=== PATIENT | female | born 1990 | race Caucasian/White ===

== ENCOUNTER 2019-12-09 17:48 | Emergency (ER) | payer OTHER ==
[~2019-12-09] VITALS: Ht 154.9 cm; Wt 65.8 kg
--- OUTSIDE RECORDS SUMMARY | ~2019-12-09 | XMS | Encounter Summary ---
Demographics + + + | Address | [address] | | | [place] [address] | + + + | Home Phone | | + + + | Preferred Language | Unknown | + + + | Marital Status | | + + + | Jewish Affiliation | Unknown | + + + | Race | White | + + + | Ethnic Group | Not or | + + + Author + + + | Author | [facility] | + + + | Organization | [facility] | + + + | Address | Unknown | + + + | Phone | Unavailable | + + + Support + + + + + | Name | Relationship | Address | Phone | + + + + + | Xiang Diggs | ECON | [address] | | | | | # [place] | | | | | [address] | | + + + + + Care Team Providers + +------+ + | Care Ceo Na Name | Role | Phone | + +------+ + | Ida Herrera | PCP | | + +------+ + Reason for Visit + + + | Reason | Comments | + + + | Examination Of Skin | Francis is here today for possible psoriasis.....Maureen MONTEJO | + + + Consultation (Routine) +--------+--------+ + + + + | Status | Reason | Specialty | Diagnoses / | Referred By | Referred To | | | | | Procedures | Contact | Contact | +--------+--------+ + + + + | Closed | | Dermatology | Diagnoses | Javier, | [place], | | | | | Psoriasis, | Ida Guillen, | Leticia Bowen, | | | | | unspecified | [place] [address] | ,PhD 1934 | | | | | | [address] | [address] | | | | | | [place], | [place], | | | | | | [place] [address] | [place] [address] | | | | | | Phone: | Phone: | | | | | | [phone] | [phone] | | | | | | Fax: | Fax: | | | | | | [phone] | [phone] | +--------+--------+ + + + + Encounter Details +--------+---------+ + + + | Date | Type | Department | Care Team | Description | +--------+---------+ + + + | 11/05/ | Office | Dermatology at | Leticia Cat, | Nevus spilus | | 2015 | Visit | Christine Espinoza | ,PhD 1934 | (Primary Dx); Atopic | | | | Clinic [address] | [address] [place], [place] | dermatitis, | | | | [place], [place] | [address] | unspecified type | | | | [address] | [phone] | | | | | [phone] | | | +--------+---------+ + + + Social History + +-------+ +--------+------+ | Tobacco Use | Types | Packs/Day | Years | Date | | | | | Used | | + +-------+ +--------+------+ | Never Assessed | | | | | + +-------+ +--------+------+ + + + | Sex Assigned at | Date Recorded | | | | + + + | Not on file | | + + + + + + + | Job Start Date | Occupation | Industry | + + + + | Not on file | Not on file | Not on file | + + + + + + + + | Travel History | Travel Start | Travel End | + + + + + + | No recent travel history available. | + + documented as of this encounter Last Filed Vital Signs + + + + + | Vital Sign | Reading | Time Taken | Comments | + + + + + | Blood Pressure | - | - | | + + + + + | Pulse | 69 | 11/06/2015 1:07 PM | | | | | PDT | | + + + + + | Temperature | - | - | | + + + + + | Respiratory Rate | - | - | | + + + + + | Oxygen Saturation | 99% | 11/06/2015 1:07 PM | | | | | PDT | | + + + + + | Inhaled Oxygen | - | - | | | Concentration | | | | + + + + + | Weight | 65.2 kg (143 lb 12.8 | 11/06/2015 1:07 PM | | | | oz) | PDT | | + + + + + | Height | 154.9 cm (5' 1") | 11/06/2015 1:07 PM | | | | | PDT | | + + + + + | Body Mass Index | 27.17 | 11/06/2015 1:07 PM | | | | | PDT | | + + + + + documented in this encounter Patient Instructions Patient Instructions Zeinab ZohrehGATO - 11/06/2015 1:14 PM PDT [facility] Dermatology [facility] Skin Care for Atopic Dermatitis and Very Dry Skin 1. Use soap sparingly and infrequently, and do not take hot showers or baths Soap removes oils as well as dirt. If you want to clean a greasy cooking pot, you use hot w ater and lots of soap. But if you use hot water and soap on your skin, it will strip natural oils out of the skin. These oils are designed to protect your skin, and keep it from drying out. Our skin is NOT designed to be soaped up every day. Skin is normally pretty resilient and tough, and many people can tolerate daily treatment with soap all over their skin -- but not people with atopic dermatitis or sensitive skin. So: ? When you take a shower, only soap your armpits and groin; do not use cleanser on the rest of your skin unless it is visibly dirty. ? Do not take long, hot showers: even without cleanser this will irritate the skin. If your skin is already itching, the hot water will feel VERY good -- but will make the skin feel w orse, later. ? If you take baths, do not make them very hot. AND, do not use any soap or shampoo at all until you are about ready to get out! Again, use cleanser only in the armpits & groin, or vi sibly dirty areas, and rinse off immediately. ? If you must use an antibacterial soap, I recommend Hibiclens Wash 1-2 times a week. If bl each baths have been recommended by your doctor add 1/4 cup bleach to a full bath and soak o nce weekly. Mild Cleansers ? Dove Unscented bar ? Olay Body bar ? Cetaphil bar ? Cetaphil cleanser (does not foam but works well!) ? Neutrogena cleansing wash ? Purpose liquid cleanser 2. Use moisturizing CREAMS or OINTMENTS -- not lotions Moisturizers do NOT really add moisture to the skin, but they help add a protective coating that reduces water loss, allowing the skin to moisturize itself from the inside. Apply your moisturizer IMMEDIATELY after your shower or bath to SEAL in the moisture you gained. "Soak , and Seal!" For people with very dry skin, LOTIONS ARE MOSTLY USELESS, and many of them will irritate t he skin. Creams (oil in water emulsions; too thick to make "drops") are generally good moist urizers, and ointments are the best of all, but ointments are greasy and not very elegant -- most people don't enjoy using them. 3. Apply cream or ointment twice a day, and after every shower/bath. Moisturizers can be ap plied as often as desired; use them liberally at least twice a day. The most important time to apply a moisturizer is right after bathing or showering, before the skin is completely dr y. Most moisturizing creams will do the job: it is safest, however, to choose creams that do n ot have added fragrance. Recommended creams ? Cetaphil Cream (my favorite: very effective and very well tolerated) ? CeraVe Cream ? Curel Dry Skin Care ? Eucerin Cream (pretty thick, and hard to apply, but very effective; no odor) ? Neutrogena Hand Cream ? Vanicream (especially good for sensitive skin) Ointments ? Vaseline (100% petroleum jelly) ? Aquaphor ointment 4. Avoid contact with irritants and solvents ? Wool clothing, or any rough fabric ? Alcohol will strip oils from the skin: Avoid toners ? Kitchen cleansers and solvents ? Bleach ? Avoid hydrogen peroxide documented in this encounter Progress Notes Leticia Cat MD,PhD - 11/06/2015 12:59 PM PDTFormatting of this note might be differen t from the original. DERMATOLOGY NEW PATIENT VISIT CHIEF COMPLAINT: Examination Of Skin PCP: JEANNINE Borden HISTORY OF PRESENT ILLNESS: Swapna Diggs is a 25 y.o. female who presents for evaluation of Examination Of Skin She is here for evaluation of dermatitis. She has had dry irritated skin and eczema on her hands, wrists and ankles for most of her life. It waxes and wanes in severity. She is not currently using any prescription products. She uses Dove sensitive skin bar soap, and a justin sturizer in the shower. She is here with her 6-month-old daughter who has an infantile nico ngioma on her back. The patient's dermatology intake form was reviewed, signed, and dated. Her relevant PMH, F H, and SH includes: PAST MEDICAL HISTORY: No past medical history on file. PAST SURGICAL HISTORY: No past surgical history on file. SOCIAL HISTORY: Patient MEDICATIONS: Current Medication List Not on File ALLERGIES: Allergies not on file REVIEW OF SYSTEMS: Please see HPI and PMH. In addition, she denies fever, chills, sweats, weight loss or loss of appetite, and has no further skin complaints. PHYSICAL EXAMINATION: Pulse 69 | Ht 1.549 m (5' 1") | Wt 65.227 kg (143 lb 12.8 oz) | SpO2 99% | BMI 27.18 kg/(m^ 2) Well-developed, well-nourished person in no acute distress. Awake, alert and oriented. Pl easant and cooperative mood. A skin examination was performed including the scalp, face, eyelids, ears, lips, neck, ches t, back, abdomen, bilateral arms, bilateral hands, and nails. 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 Routine use of sunscreen and skin-protective clothing was also discussed. Month ly self-examination was recommended in addition to annual skin exams Atopic dermatitis Comment: Bilateral wrist and hands Plan: -- Dry skin care handout provided today -- Triamcinolone cream (Twice daily for two weeks for flares, then regular Moisturizer for maintenance) RETURN VISIT: Return if symptoms worsen or fail to improve. Leticia Cat MD, PhD [employer] Department of Dermatology [facility] 11/06/2015 documented in th is encounter Plan of Treatment Not on filedocumented as of this encounter Visit Diagnoses + + | Diagnosis | + + | Nevus spilus - Primary Benign neoplasm of skin, site unspecified | + + | Atopic dermatitis, unspecified type | + + documented in this encounter
--- OUTSIDE RECORDS SUMMARY | ~2019-12-09 | XMS | Encounter Summary ---
Demographics + + + | Address | [address] | | | [place] [address] | + + + | Home Phone | | + + + | Preferred Language | Unknown | + + + | Marital Status | | + + + | Presybeterian Affiliation | Unknown | + + + | Race | White | + + + | Ethnic Group | Not or | + + + Author + + + | Author | [facility] | + + + | Organization | [facility] | + + + | Address [...] [place] | | | | | [address] | | + + + + + Care Team Providers + +------+ + | Care Texture Artist Name | Role | Phone | + +------+ + | Ida Herrera | PCP | | + +------+ + Encounter Details +--------+ + + + + | Date | Type | Department | Care Team | Description | +--------+ + + + + | 11/11/ | Telephone | Dermatology at | Leticia Cat, | | | 2015 | | Christine Espinoza | ,PhD 1934 | | | | | Clinic [address] | [place] | | | | | [place], [place] | [address] | | | | | [address] | [phone] | | | | | [phone] | | | +--------+ + + + + Social History + +-------+ [...] + + documented as of this encounter Plan of Treatment Not on filedocumented as of this encounter Visit Diagnoses Not on filedocumented in this encounter"
--- OUTSIDE RECORDS SUMMARY | ~2019-12-09 | XMS | Clinical Summary ---
Demographics + + + | Address | [address] | | | [place] [address] | + + + | Home Phone | | + + + | Preferred Language | Unknown | + + + | Marital Status | | + + + | Anglican Affiliation | Unknown | + + + | Race | White | + + + | Ethnic Group | Not or | + + + Author + + + | Author | [facility] | + + + | Organization | [facility] | + + + | Address | Unknown | + + + | Phone | Unavailable | + + + Support + + + + + | Name | Relationship | Address | Phone | + + + + + | Xiang Diggs | ECON | [address] | | | | | # [place] | | | | | [address] | | + + + + + Care Team Providers + +------+ + | Care Relief Pharmacist Name | Role | Phone | + +------+ + | Ida Herrera | PCP | | + +------+ + Source Comments ORQUIDEA is fully live on both [facility] and [facility]Patient.[facility] Allergies No Known Allergies Medications + + + +---------+------+------+-------+ | Medication | Sig | Dispensed | Refills | Star | End | Statu | | | | | | t | Date | s | | | | | | Date | | | + + + +---------+------+------+-------+ | SUDOGEST 12-HOUR | Take 120 mg by mouth | | 0 | 05/1 | | Activ | | 120 mg oral tablet | once daily. | | | 3/20 | | e | | extended release | | | | 16 | | | + + + +---------+------+------+-------+ | SHAROBEL 0.35 mg | | | 0 | 05/2 | | Activ | | oral tablet | | | | 0/20 | | e | | | | | | 16 | | | + + + +---------+------+------+-------+ | triamcinolone | Apply thin film to | 80 g | 3 | 06/2 | | Activ | | acetonide 0.1 % | affected areas twice | | | 3/20 | | e | | topical | daily for two weeks | | | 16 | | | | creamIndications: | for flares | | | | | | | Atopic dermatitis, | | | | | | | | unspecified type | | | | | | | + + + +---------+------+------+-------+ Active Problems Not on file Social History + +-------+ +--------+------+ | Tobacco [...] recent travel history available. | + + Last Filed Vital Signs + + + [...] | | + + + + + Plan of Treatment + + + + + | Health Maintenance | Due Date | Last Done | Comments | + + + + + | Influenza (Flu) | | | | | vaccination (#1) | 9 | | | + + + + + | Pneumococcal | Aged Out | | No longer eligible | | vaccination | | | based on patient's | | | | | age to complete this | | | | | topic | + + + + + Results Not on filefrom Last 3 Months Insurance + +--------+ +--------+-------+---------+--------+ | Payer | Benefi | Subscriber | Effect | Phone | Address | Type | | | t Plan | ID | abundio | | | | | | / | | Dates | | | | | | Group | | | | | | + +--------+ +--------+-------+---------+--------+ | TUMBLER TENDER MEDICAID | TUMBLER TENDER | xxxxxxxx | Effect | | | Medica | | | [place]AST[place] | | abundio | | | id | | | [place] | | for | | | | | | | | all | | | | | | | | dates | | | | + +--------+ +--------+-------+---------+--------+ + +--------+ +--------+ + + | Guarantor Name | Accoun | Relation to | Date | Phone | Billing Address | | | t Type | Patient | of | | | | | | | | | | + +--------+ +--------+ + + | Swapna Diggs | Person | Self [birth year] | [address] | | | al/Fam | | 1990 | [phone] | [address] [place] | | | frank | | | 5 ([place]) | [phone] | | | | | | [phone] | | | | | | | 8 (Work) | | + +--------+ +--------+ + +
--- OUTSIDE RECORDS SUMMARY | ~2019-12-09 | XMS | Encounter Summary ---
Demographics + + + | Address | [address] | | | [place] [address] | + + + | Home Phone | | + + + | Preferred Language | Unknown | + + + | Marital Status | | + + + | Religion Affiliation | Unknown | + + + | Race | White | + + + | Ethnic Group | Not or | + + + Author + + + | Author | [facility] | + + + | Organization | [facility] | + + + | [...] [place] | | | | | [address] | | + + + + + Care Team Providers + +------+ + | Care Bid Writer Name | Role | Phone | + +------+ + | Ida Herrera | PCP | | + +------+ + Encounter Details +--------+ + + + + | Date | Type | Department | Care Team | Description | +--------+ + + + + | 07/03/ | Document-Sc | Dermatology at | Leticia Cat, | | | 2016 | anntrace | [facility] | ,PhD 1934 | | | | | Clinic [address] | [address] [place], [place] | | | | | [place], [place] | [address] | | | | | [address] | [phone] | | | | | [phone] | | | +--------+ + + + [...]
--- OUTSIDE RECORDS SUMMARY | ~2019-12-09 | XMS | Clinical Summary ---
Demographics + + + | Address | [address] | | | [place] [address] | + + + | Home Phone | | + + + | Preferred Language | Unknown | + + + | Marital Status | | + + + | Zoroastrianism Affiliation | Unknown | + + + | Race | White | + + + | Ethnic Group | Not or | + + + Author + + + | Author | [facility] | + + + | Organization | [facility] | + + + | Address [...] [place] | | | | | [address] | | + + + + + Care Team Providers + +------+ + | Care Radio Rigger Name | Role | Phone | + +------+ + | Ida Herrera | PCP | | + +------+ + Source Comments ORQUIDEA is fully live on both [facility] Amb[facility] and [facility] InPatient.[facility] Allergies No Known Allergies Medications + + [...] | | | + +--------+ +--------+-------+---------+--------+ | LAUNDRY MACHINE MECHANIC MEDICAID | LAUNDRY MACHINE MECHANIC | xxxxxxxx | Effect | | | [...] | | al/Fam | | 1990 | [phone] | [address] [place] | | | frank | | | 5 ([place]) | [id number] | | | | | | [phone] | | | | | | | 8 (Work) | | + +--------+ +--------+ + +
--- OUTSIDE RECORDS SUMMARY | ~2019-12-09 | XMS | Encounter Summary ---
Demographics + + + | Address | [address] | | | [place] [address] | + + + | Home Phone | | + + + | Preferred Language | Unknown | + + + | Marital Status | | + + + | Advent Affiliation | Unknown | + + + | Race | White | + + + | Ethnic Group | Not or | + + + Author + + + | Author | [facility] | + + + | Organization | [facility] | + + + | Address [...] [place] | | | | | [address] | | + + + + + Care Team Providers + +------+ + | Care Low Altitude Air Defense Gunner Name | Role | Phone | + [...] [place] | | | | | [place], [place] | [address] | | | | | [address] | [phone] | | | | | [phone] | | | +--------+ + + + [...]
--- OUTSIDE RECORDS SUMMARY | ~2019-12-09 | XMS | Encounter Summary ---
Demographics + + + | Address | [address] | | | [place] [address] | + + + | Home Phone | | + + + | Preferred Language | Unknown | + + + | Marital Status | | + + + | Orthodox Affiliation | Unknown | + + + [...] [place] | | | | | [address] | | + + + + + Care Team Providers + +------+ + | Care Propulsion Generator Repairer Name | Role | Phone | + [...] [place] | | | | | [place], [place] | [address] | | | | | [address] | [phone] | | | | | [phone] | | | +--------+ + + + [...]
--- OUTSIDE RECORDS SUMMARY | ~2019-12-09 | XMS | Encounter Summary ---
Demographics + + + | Address | [address] | | | [place] [address] | + + + | Home Phone | | + + + | Preferred Language | Unknown | + + + | Marital Status | | + + + | Jainism Affiliation | Unknown | + + + | Race | White | + + + | Ethnic Group | Not or | + + + Author + + + | Author | [facility] | + + + | Organization | [facility] | + + + | Address [...] [place] | | | | | [address] | | + + + + + Care Team Providers + +------+ + | Care Sinker Winder Name | Role | Phone | + [...] | | | | unspecified | [place] [address] | ,PhD 1934 | | | | | | [address] | E | | | | | | [place], | [place], | | | | | | [place] [address] | [place] [address] | | | | | | Phone: | Phone: | | | | | | [phone] | [phone] | | | | | | Fax: | Fax: | | | | | | [phone] | [phone] | +--------+--------+ + + + + Encounter [...] | dermatitis, | | | | [place] | [address] | unspecified type | | | | [address] | [phone] | | | | | [phone] | | | +--------+---------+ + + + [...] Zeinab ZohrehGATO - 11/06/2015 1:14 PM PDT [facility] Dermatology [facility] Skin Care for Atopic [...] fail to improve. Leticia Cat MD, PhD [facility] Department of Dermatology [facility] 11/06/2015 documented in th is encounter Plan of Treatment Not on filedocumented as of this encounter Visit Diagnoses + + | Diagnosis | + + | Nevus spilus - Primary Benign neoplasm of skin, site unspecified | + + | Atopic dermatitis, unspecified type | + + documented in this encounter
== END 2019-12-09 19:13 | disposition home or self-care (01) ==
LOC: ED 17:48
DX: S60.211A Contusion of right wrist, initial encounter (principal); V49.49XA Driver injured in collision with other motor vehicles in traffic accident, initial encounter
CPT/HCPCS: 73110; 99283

== ENCOUNTER 2020-11-10 10:26 | Emergency (ER) | payer OTHER ==
[~2020-11-10] VITALS: Ht 154.9 cm; Wt 54.4 kg
== END 2020-11-10 13:20 | disposition home or self-care (01) ==
LOC: ED 10:26
DX: R47.81 Slurred speech (principal); G43.909 Migraine, unspecified, not intractable, without status migrainosus
CPT/HCPCS: 70450; 70496; 70498; 80053; 84703; 85025; 99285-25; Q9967

== ENCOUNTER 2024-06-17 18:35 | Emergency (ER) | payer OTHER ==
[~2024-06-17] VITALS: Ht 154.9 cm; Wt 60.8 kg
[2024-06-17] MEDS ORDERED: LORYNA 3 MG-0.1 EACH (18:48)
[2024-06-17] MEDS ORDERED: BUPROPION XL300 MG (18:49)
[2024-06-17] MEDS ORDERED: DEXTROAMP-AMPHE20 MG (18:49)
[2024-06-17 18:53] VITALS: BP 117/78
== END 2024-06-17 19:02 | disposition home or self-care (01) ==
LOC: ED 18:35
DX: S61.011A Laceration without foreign body of right thumb without damage to nail, initial encounter (principal); W27.8XXA Contact with other nonpowered hand tool, initial encounter; Y93.G1 Activity, food preparation and clean up
CPT/HCPCS: 99282